=== PATIENT | female | born 1950 | race Caucasian/White ===

== ENCOUNTER 2017-09-24 10:56 | Inpatient (IN) | payer OTHER, MEDICARE ==
[2017-08-29 16:05] VITALS: BMI 31.0
[2017-08-29 16:22] LABS: INR 0.9 (0.9-1.1); PTT PATIENT 24.7 SECONDS (21.0-31.0)
--- NOTE | 2017-08-29 16:46 | PAT Medication Instructions ---
Service Date Aug 29, 2017. Current Home Medication List Albuterol Hfa (Ventolin Hfa), 1 PUFFS INH UD PRN for PRN Amlodipine (Norvasc), QAM Aspirin (Aspirin Ec), 81 MG PO HS Azelastine HCl (Azelastine HCl), Unknown Dose NA UD PRN for PRN Cetirizine (Zyrtec), 1 TAB PO QAM Cholecalciferol (Vitamin D3), 1 CAP PO QAM Diclofenac Sodium (Topical) (Voltaren 1% Top Gel), 1 APPLN TOP UD PRN for KNEE PAIN Fluticasone Propionate (Nasal) (Allergy Nasal [place] 24 Ho), 1 DOSE QUINTIN UD PRN for PRN Lansoprazole (Prevacid), Unknown Dose PO UD PRN for PRN Lorazepam (Ativan), 1 MG PO UD PRN for ANXIETY Magnesium Oxide (Magnesium), 250 MG PO HS Melatonin (Melatonin), 7.5 MG PO HS Meloxicam (Mobic), 7.5 MG PO QAM Mirabegron (Myrbetriq Er), 25 MG PO QAM Montelukast Sodium (Montelukast Sodium), 1 TAB PO QAM Multivitamin (Multivitamin), Unknown Dose QAM Oxycodone/Acetaminophen 5MG/325MG (Percocet 5MG/325MG), 1-2 TABLETS PO Q4-6HR PRN Polyethylene Glycol 3350 (Miralax), 17 GM PO QAM Turmeric (Curcuma Longa) (Turmeric), 1 TAB PO QAM Umeclidinium-Vilanterol (Anoro Ellipta 62.5-25 Mcg/INH), 1 PUFF INH QAM [Citracal ], Unknown Dose PO QAM [Flexor Patch ], Unknown Dose TOP UD PRN for JOINT PAIN Medication Instructions For Your Scheduled Surgery -Follow your surgeons instructions for: Meloxicam (Mobic), 7.5 MG PO QAM (stop for 10 days before surgery) - Hold the following medications 2 weeks prior to surgery: Turmeric (Curcuma Longa) (Turmeric), 1 TAB PO QAM - Hold the following medications 24 hours prior to surgery: [Flexor Patch ], Unknown Dose TOP UD PRN for JOINT PAIN Diclofenac Sodium (Topical) (Voltaren 1% Top Gel), 1 APPLN TOP UD PRN for KNEE PAIN - Hold the following medications the morning of surgery: Cetirizine (Zyrtec), 1 TAB PO QAM Cholecalciferol (Vitamin D3), 1 CAP PO QAM Mirabegron (Myrbetriq Er), 25 MG PO QAM Montelukast Sodium (Montelukast Sodium), 1 TAB PO QAM Multivitamin (Multivitamin), Unknown Dose QAM Polyethylene Glycol 3350 (Miralax), 17 GM PO QAM [Citracal ], Unknown Dose PO QAM - Take the following medications the morning of surgery with a sip of water: Albuterol Hfa (Ventolin Hfa), 1 PUFFS INH UD PRN for PRN (if needed, and bring it with you to the hospital) Amlodipine (Norvasc), QAM Azelastine HCl (Azelastine HCl), Unknown Dose NA UD PRN for PRN (if needed) Fluticasone Propionate (Nasal) (Allergy Nasal [place] 24 Ho), 1 DOSE QUINTIN UD PRN for PRN (if needed) Lansoprazole (Prevacid), Unknown Dose PO UD PRN for PRN (if needed) Lorazepam (Ativan), 1 MG PO UD PRN for ANXIETY (if needed) Umeclidinium-Vilanterol (Anoro Ellipta 62.5-25 Mcg/INH), 1 PUFF INH QAM - Take the following medications as scheduled the night before surgery: Albuterol Hfa (Ventolin Hfa), 1 PUFFS INH UD PRN for PRN (if needed) Amlodipine (Norvasc), QAM Aspirin (Aspirin Ec), 81 MG PO HS Azelastine HCl (Azelastine HCl), Unknown Dose NA UD PRN for PRN (if needed) Fluticasone Propionate (Nasal) (Allergy Nasal [place] 24 Ho), 1 DOSE QUINTIN UD PRN for PRN (if needed) Lansoprazole (Prevacid), Unknown Dose PO UD PRN for PRN (if needed) Lorazepam (Ativan), 1 MG PO UD PRN for ANXIETY (if needed) Magnesium Oxide (Magnesium), 250 MG PO HS Melatonin (Melatonin), 7.5 MG PO HS If you have any questions please call us at [phone] or [phone] or [phone]
--- NOTE | 2017-08-29 17:38 | DIAGNOSTIC IMAGING REPORT ---
CHEST 2 VIEWS ROUTINE HISTORY: 67 years-old Female pat preoperative exam. No acute chest complaints. COMPARISON: Chest radiograph 07/24/2006 TECHNIQUE: PA and lateral views of the chest FINDINGS: Cardiomediastinal and hilar silhouettes are within normal limits. The patient is slightly rotated to the left. Chronic blunting of the costophrenic angles without pneumothorax, large pleural effusion or overt pulmonary edema. Indeterminate linear 1.6 cm metallic density structure projects over the lateral lingula. Moderate hiatal hernia. Increased kyphotic curvature of the thoracic spine with multilevel endplate spurring. Degenerative changes also seen within the shoulders. IVC filter noted. IMPRESSION: 1. No acute process of the chest. 2. Moderate hiatal hernia. 3. Indeterminate linear 1.6 cm metallic density structure projects over the lateral lingula. The above report was generated using voice recognition software. It may contain grammatical, syntax or spelling errors. Electronically signed by: Severiano Hearn M.D. 08/29/2017 5:37 PM Dictated Date/Time: 08/29/2017 5:34 PM
--- NOTE | 2017-09-19 08:28 | HISTORY & PHYSICAL EXAMINATION ---
DATE OF ADMISSION: 09/24/2017 CHIEF COMPLAINT: Left knee pain. HISTORY OF PRESENT ILLNESS: A 67-year-old female, now 11 years out from a right knee replacement who presents for surgical treatment of her left knee. She has had about a 10-year history of a gradually increasing left knee pain and discomfort that has gotten gradually worse over time. The injections had become less successful over time. She has periods where she has pretty excruciating pain and has difficulty even walking and getting around. Symptoms do tend to wax and wane some. It is global pain throughout the entire knee. The more she walks, the more it seems to hurt. She would like to have her left knee fixed. The patient does have a history of DVT in the past and has an IVC filter in place. No known clotting disorder. Not on any anticoagulation. PAST MEDICAL HISTORY: 1. Mitral valve prolapse. 2. Hypertension. 3. COPD. 4. History of DVT in 2003 after a hernia surgery with an IVC filter in place. 5. Hiatal hernia. 6. Mild obesity with a BMI of 32. 7. Kidney stones. PAST SURGICAL HISTORY: Previous surgeries include 1. Tubal ligation. 2. Multiple lumps removed from her breasts. 3. Hiatal hernia complicated by DVT. 4. Right knee replacement done on August 09, 2006. 5. Rectocele repair in 2002. 6. Hysterectomy in 1990. ALLERGIES: ADHESIVE TAPES. MEDICATIONS: Current medications include 1. Montelukast 10 mg a day. 2. Amlodipine 10 mg a day. 3. Myrbetriq 25 mg. 4. Anoro 62.5 mcg a day. 5. Meloxicam 7.5 mg a day. 6. Magnesium. 7. Baby aspirin. 8. Vitamin D. 9. Turmeric. 10. Zyrtec. 11. MiraLax. 12. Once a day Citrucel. 13. Diclofenac p.r.n. 14. Prevacid. 15. Melatonin. 16. Lorazepam. 17. Zolpidem. 18. Fluticasone. 19. Azelastine. 20. Flector patch. 21. ProAir. SOCIAL HISTORY: A 67-year-old female. She is from [place]. She does not smoke. No alcohol use. FAMILY HISTORY: Noncontributory. REVIEW OF SYSTEMS: Negative for diabetes, neurologic problem, vascular problems, or bleeding disorders. He does have this history of a DVT and has an IVC filter in place but not on any anticoagulation. No known clotting disorders. PHYSICAL EXAMINATION: GENERAL: Examination shows a pleasant middle-aged female, looks to be in pretty good health. HEENT: Benign. NECK: Supple, no lymphadenopathy. LUNGS: Clear to auscultation. CARDIOVASCULAR: Heart has regular rate and rhythm. GASTROINTESTINAL: Abdomen is soft, nontender, nondistended. EXTREMITIES: Grossly neurovascularly intact except as follows: Examination of the left leg reveals the patient walks with slight bit of a limp. She has varus alignment to her knee. She has bony hypertrophy medially. Small knee effusion. Range of motion is 5 to 110 degrees flexion. No instability. No pain with hip motion. IMAGING: X-rays of the left knee reviewed. She has advanced left knee DJD. She has complete loss of her medial joint space, a little bit of tibial femoral subluxation. She has subchondral sclerosis. ASSESSMENT: A 67-year-old white female, 11 years out from right knee replacement with advanced left knee degenerative joint disease. She has failed conservative treatment and would like to have her left knee replaced. She does have a history of DVT in the past and has an IVC filter in place. PLAN: We will take her to the operating room and do a left total knee replacement. The risks and benefits of the procedure explained to the patient which include but are not limited to DVT, PE, , infection, neurological injury, vascular injury, bleeding problem, pain in the range of motion, failure to relieve her symptoms, incomplete relief of symptoms, need for further surgery in the future, fracture, leg length inequality, nerve palsy, etc. The patient understands and desires to proceed. Informed consent was obtained. The patient does have a history of IVC filter in place. Will likely use Xarelto for 30 days postop for DVT prophylaxis. She has stopped her NSAIDs 10 days preop. She is planning to be discharged to home using the [facility] home health program.
[~2017-09-24] VITALS: Ht 162.6 cm; Wt 83.5 kg
[~2017-09-24 10:56] MED LIST: ACETAMINOPHEN 500 MG TAB PO SCH; AMLO-114; ASPI81TA28 PO; AZEL0.056; BUPIVACAINE LIPOSOME 266 MG, BUPIVACAINE/EPINEPHRINE INJ 50 ML, SODIUM CHLORIDE 0.9% PF... INFIL SCH; CEFAZOLIN 2000MG IV PUSH 15 ML IV SCH; CETI10TA84 PO; CHOL2000 PO; CITRACAL PO; DICL1GEL12 TOP; FAMOTIDINE 20 MG TAB PO SCH; FLEXOR PATCH TOP; FLUT50SP45 NAE; GABAPENTIN 300 MG CAP PO SCH; LACTATED RINGER'S 1000ML 1,000 ML IV SCH; LACTATED RINGER'S 1000ML IV SCH; LANS15CA6 PO; LORA-741 PO; MAGN1CAP4 PO; MELA1TAB48 PO; MELO7.5T5 PO; METOCLOPRAMIDE HCL 10 MG TAB PO SCH; MIRA100T PO; MISSING PHYSICIAN SIGNATURE ON ORDER SCH; MONT1TAB5 PO; MULT-506; OXYC-57 PO; POLY335019 PO; SCOPOLAMINE 1.5 MG TDSY TD SCH; TRANEXAMIC ACID INJ 1,000 MG x 1 Bag Intra-Op IV SCH; TURM500T PO; UMEC1AER INH; VNTHFA/IN INH
[2017-09-24 11:20] VITALS: BP 158/92; PULSE 81; TEMP 36.8; O2SAT 98; Ht 162.6 cm; Wt 83.5 kg
--- NOTE | 2017-09-24 11:22 | History & Physical Bridge Note ---
H&P Re-Evaluation Bridge Note: I have examined the patient, reviewed the History & Physical and in the interval since the performance of the History & Physical I have noted the following changes of clinical significance: No changes noted
[2017-09-24] MEDS ORDERED: ACETAMINOPHEN 500 MG TAB ONE (11:24)
[2017-09-24] MEDS ORDERED: FAMOTIDINE 20 MG TAB ONE (11:24)
[2017-09-24] MEDS ORDERED: LIDOCAINE HCL 2% 2 ML VIAL (20MG/ML) ONE (11:50)
[2017-09-24] MEDS ORDERED: FENTANYL CITRATE INJ 50 MCG/1 ML 2 ML VIAL ONE (11:51)
[2017-09-24] MEDS ORDERED: PROPOFOL IV EMULSION 10 MG/ML 20 ML VIAL ONE ×3 (11:51→14:20)
[2017-09-24] MEDS ORDERED: MIDAZOLAM HCL 1 MG/ML 2ML VIAL ONE ×2 (11:51→14:11)
[2017-09-24] MEDS ORDERED: BUPIVACAINE 0.5 % 5 MG/1 ML PF 10ML VIAL ONE (11:55)
[2017-09-24] MEDS ORDERED: EpINEphrine INJ 1MG/ML AMP 1 MG/ML AMP ONE ×2 (11:56→13:25)
[2017-09-24] MEDS ORDERED: DEXAMETHASONE SOD INJ 4 MG/ML VIAL ONE ×2 (11:56→14:13)
[2017-09-24] MEDS ORDERED: SODIUM CHLORIDE 0.9% INJ 10 ML VIAL ONE (11:56)
[2017-09-24] MEDS ORDERED: EpHEDrine SULFATE INJ 50 MG/ML AMP IV PRN (12:00)
[2017-09-24] MEDS ORDERED: FENTANYL CITRATE INJ 50 MCG/1 ML 2 ML VIAL IV PRN (12:00)
[2017-09-24] MEDS ORDERED: ONDANSETRON INJ 2 MG/ML 2 ML VIAL IV PRN ×2 (12:00→15:45)
[2017-09-24] MEDS ORDERED: ATROPINE SULFATE 0.1 MG/ML 5ML SYR IV PRN (12:00)
[2017-09-24] MEDS ORDERED: SODIUM CHLORIDE 0.9% PF 50 ML VIAL ONE (13:23)
[2017-09-24] MEDS ORDERED: BUPIVACAINE LIPOSOME 1/3% 266 MG/20 ML VIAL ONE (13:23)
[2017-09-24] MEDS ORDERED: BACITRACIN 50000 UNIT VIAL ONE (13:23)
[2017-09-24] MEDS ORDERED: BUPIVACAINE 0.25% 30 ML VIAL ONE (13:25)
[2017-09-24] MEDS ORDERED: ONDANSETRON INJ 2 MG/ML 2 ML VIAL ONE (14:13)
--- NOTE | 2017-09-24 15:38 | [facility] Post Operative Brief Note ---
Immediate Operative Summary Operative Date September 24, 2017. Pre-Operative Diagnosis Left Knee Degenerative Joint Disease Post-Operative Diagnosis Left Knee Degenerative Joint Disease Procedure(s) Performed Left Total Knee Arthroplasty Surgeon Dr. Navarro Brass Bobbin Winder Surgeon(s) Mo Salazar PA-C Estimated Blood Loss 50 ml Findings Consistent with Post-Op Diagnosis Fluids (cc crystalloids) 1300 cc Specimens A. Left Knee Bone and Tissue Drains None Anesthesia Type MAC Spinal Regional Complication(s) none Disposition Accompanied Pt To Recover: yes Disposition: Recovery Room / PACU Overlapping Procedure I was present for: the critical portions of procedure. I was immediately available: during the entire case
[2017-09-24] MEDS ORDERED: SILVER SULFADIAZINE 1% CR 50 GM JAR EXT PRN (15:45)
[2017-09-24] MEDS ORDERED: MAGNESIUM HYDROXIDE SUSP 30 ML UDC PO PRN (15:45)
[2017-09-24] MEDS ORDERED: HYDROmorphone INJ 0.5 MG/0.5 ML SYR IV PRN (15:45)
[2017-09-24] MEDS ORDERED: ALUMINUM/MAGNESIUM/SIMETH (MAALOX MAX) 30 ML UDC PO PRN (15:45)
[2017-09-24] MEDS ORDERED: BISACODYL 10 MG SUPP PR PRN (15:45)
[2017-09-24] MEDS ORDERED: FLUTICASONE PROPIONATE NA SPR 16 GM BTL NAE PRN (15:45)
[2017-09-24] MEDS ORDERED: ALBUTEROL HFA 8 GM INHALER INH PRN (15:45)
[2017-09-24] MEDS ORDERED: METOCLOPRAMIDE HCL INJ 5 MG/ML 2 ML VIAL IV PRN (15:45)
--- NOTE | 2017-09-24 16:01 | Anesthesiology Progress Note ---
Anesthesia Post Op Note Date & Time September 24, 2017 at 16:01 Vital Signs Pain Intensity: 0 Vital Signs Past 12 Hours Date Time Temp Pulse Resp B/P (MAP) Pulse Ox O2 Delivery O2 Flow Rate FiO2 09/24/17 15:50 67 16 143/79 94 Oxymask 3 09/24/17 15:41 36.0 75 20 132/82 94 Oxymask 5 09/24/17 11:20 36.8 81 20 158/92 98 Room Air Notes Mental Status: alert / awake / arousable, participated in evaluation Pt Amnestic to Procedure: Yes Nausea / Vomiting: adequately controlled Pain: adequately controlled Airway Patency, RR, SpO2: stable & adequate BP & HR: stable & adequate Hydration State: stable & adequate Neuraxial Anesthesia: was administered, sensory block is resolving Anesthetic Complications: no major complications apparent
--- NOTE | 2017-09-24 16:06 | DIAGNOSTIC IMAGING REPORT ---
L KNEE 1 OR 2 VIEWS ROUTINE HISTORY: 67 years-old Female AP/LATERAL IN PACU LEFT KNEE left knee total joint arthroplasty. Degenerative joint disease. COMPARISON: Left knee radiographs 08/29/2017 TECHNIQUE: 2 views of the left knee FINDINGS: Postoperative changes from recent left knee total joint arthroplasty with patellar resurfacing. Expected postsurgical soft tissue swelling and deep tissue air with anterior midline skin efren in place. There is satisfactory alignment without periprosthetic fracture or retained foreign body identified. IMPRESSION: Left knee total joint arthroplasty and patellar resurfacing without complication identified. The above report was generated using voice recognition software. It may contain grammatical, syntax or spelling errors. Electronically signed by: Severiano Hearn M.D. 09/24/2017 4:04 PM Dictated Date/Time: 09/24/2017 4:03 PM
[2017-09-24] MEDS: CHECK SCOPOLAMINE PATCH PLACEMENT SCH ×2 (16:32→23:20)
[2017-09-24 16:35] VITALS: BP 136/80; PULSE 70; TEMP 36.5; O2SAT 92
[2017-09-24 16:59] VITALS: BP 132/86; PULSE 69; TEMP 36.5; O2SAT 94
[2017-09-24 17:15] VITALS: BP 133/80; PULSE 68; TEMP 36.5; O2SAT 96
[2017-09-24] MEDS ORDERED: NURSING VERBAL MED ORDER ONE (17:15)
[2017-09-24] MEDS: KETOROLAC TROMETHAMINE 15 MG/ML VIAL IV. SCH ×2 (17:34→23:22)
[2017-09-24] MEDS: FERROUS GLUCONATE 324 MG TAB PO SCH (17:34)
[2017-09-24] MEDS: D5W AND 1/2NSS + 20MEQ KCL 1,000 ML IV SCH (17:34)
--- NOTE | 2017-09-24 18:12 | OPERATIVE REPORT ---
DATE OF OPERATION: 09/24/2017 SURGEON: Vega Navarro MD. PARK GUARD: Cristo Salazar PA-C PREOPERATIVE DIAGNOSIS: Left knee degenerative joint disease. POSTOPERATIVE DIAGNOSIS: Same. PROCEDURE PERFORMED: Left cemented posterior stabilized total knee arthroplasty. COMPLICATIONS: None. ESTIMATED BLOOD LOSS: 50 mL. FLUID REPLACEMENT: 1300 mL crystalloid fluid replacement. TOURNIQUET TIME: 59 minutes at 300 mmHg. ANESTHESIA: Spinal with adductor canal block. DRAINS: None. SPECIMENS: Left knee sent for pathology. OPERATIVE INDICATIONS: The patient is a 67-year-old female, now 11 years out from a right knee replacement. She has done remarkably well with this. Over the past 10 years, she has gradually developed increased pain and discomfort in the left knee. She failed conservative care. X-rays showed advanced DJD, and she elected to proceed with surgical treatment. OPERATIVE FINDINGS: Operative findings revealed advanced left knee DJD. She had extensive grade 4 changes of the medial compartment and patellofemoral compartment and some spotty grade 4 changes in the lateral compartment. She had diffuse osteopenia. She had osteophytes in all 3 compartments. Moderate size joint effusion. OPERATIVE IMPLANTS: 1. Biomet Vanguard size 62.5 left posterior stabilized femoral component. 2. Biomet size 71 tibial tray. 3. A 10 mm posterior stabilized polyethylene insert. 4. A 31 x 8 all poly patella. OPERATIVE PROCEDURE: The patient was taken to the operating room, identified and placed on the operating room table in supine position. All contact areas were appropriately padded. IV antibiotics provided by anesthesia team. A spinal anesthetic and adductor canal block had been provided in the holding area. Lewis catheter was placed in sterile fashion. A left thigh tourniquet was then placed, and the left lower extremity was then prepped and draped in the usual sterile fashion. Her left leg was only exsanguinated with Esmarch. Tourniquet was placed at 300 mmHg. An anterior approach to the left knee was then performed through a longitudinal incision centered over the patella. Sharp dissection was carried through subcutaneous tissues down to the level of the extensor mechanism. A medial parapatellar arthrotomy incision was made. Some subperiosteal dissection was carried out medially. The fat pad resected from beneath the patellar tendon. A lateral patellofemoral ligament was released. The patella was everted, and knee was flexed. The osteophytes were taken off distal femur. The ACL and PCL were then released from the distal femur and the tibia subluxated anteriorly. The external tibial alignment jig was then placed in the anterior face of the tibia and adjusted 14 mm medially. Proximal tibial cut was made to remove about 1 mm bone from the most deficient aspect of the medial tibial plateau. Some osteophytes were taken off medially and posterior medially. The tibia was sized to a size 71. Attention was then drawn to the femur. The distal femur was entered with a sharp drill bit. Intramedullary canal was suctioned. A left 5 degree valgus cutting guide was placed. Distal femoral cutting block was pinned in place. Distal femoral cut was made to take an additional 3 mm of bone off distal femur. Femur was then sized to a size 62.5. We did downsize this slightly. The AP cutting block was pinned parallel to the epicondylar axis, which was 5 degrees of external rotation. The anterior cut, anterior chamfer, posterior cut, posterior chamfer cuts were made. Box cutting guide was placed and adjusted slightly lateral, and the box cut was made. The knee was flexed. The remnants of the medial and lateral menisci were excised. The osteophytes were taken off the posterior aspect of the femur. A trial femoral component was placed. Tibial tray was pinned in maximum external rotation. Drill and stem punch were used to create defect from proximal tibia for the tibial tray. The knee was then trialed, and the 10 mm insert fit most appropriately. Attention was then drawn to patella. The patella was cleaned of all soft tissues. Patellar thickness measured 18 mm in thickness and was cut down to 12. It was sized to size 31 patella. Lug holes were drilled for 31 patella. Lateral osteophyte was removed. Patellar button was placed. Knee was taken through range of motion. Patella tracked nicely with no thumbs test. Attention was then drawn toward placement of permanent components. All trial components were removed. A bone plug was placed in the distal femur to limit blood loss. A double batch of [place]acos G cement was mixed. A left size 62.5 posterior stabilized femoral component, size 71 tibial tray, a 10 mm posterior stabilized polyethylene insert, and a 31 x 8 all poly patella then cemented in place. Knee was brought out into full extension until cement hardened. A final cement check was then performed. The pericapsular tissues were injected with a total of 100 mL of a combination of 20 mL of Exparel, 30 mL of normal saline, 50 mL of 0.25% Marcaine with epinephrine. The patient did receive 1 g of tranexamic acid. The tourniquet was then let down for a final tourniquet time of 59 minutes. Hemostasis was assured with use of electrocautery. The wound was once again irrigated. The extensor mechanism was then closed with a combination of #1 PDS suture and #1 Vicryl suture in a [id number] fashion. Extensor mechanism was checked and found to be intact. Subcutaneous tissues were then closed with 2-0 Dexon suture in a buried interrupted fashion. Skin was closed with skin efren. Leg was then cleaned, dried, and a sterile dressing of Xeroform, 4x4, sterile cast padding, and Shant bandage were applied. The patient was then transferred to the recovery room in stable condition. The patient tolerated the procedure well with no complications. All needle and sponge counts were correct at the end of the operation. I attest to the content of the Intraoperative Record and any orders documented therein. Any exception s are noted below.
[2017-09-24 19:16] VITALS: BP 148/84; PULSE 77; TEMP 36.7; O2SAT 93
[2017-09-24] MEDS: DOCUSATE SODIUM 100 MG CAP PO SCH (20:43)
[2017-09-24] MEDS: MAGNESIUM OXIDE 400 MG TAB PO SCH (20:43)
[2017-09-24] MEDS: SENNA 8.6 MG TAB PO SCH (20:43)
[2017-09-24] MEDS: ASPIRIN 81 MG ECTAB PO SCH (20:43)
[2017-09-24] MEDS: LORAZEPAM 1 MG TAB PO PRN (20:48)
[2017-09-24] MEDS ORDERED: MELATONIN 7.5 MG PO SCH (21:00)
[2017-09-24] MEDS: CEFAZOLIN IV 2,000 MG in SYRINGE 0 ML IV SCH (21:29)
[2017-09-24] MEDS: ACETAMINOPHEN 500 MG TAB PO SCH (21:29)
[2017-09-24] MEDS ORDERED: TRANEXAMIC ACID INJ 1,000 MG in SODIUM CHLORIDE 0.9% 100ML 100 ML IV SCH (22:00)
[2017-09-24] MEDS: ZOLPIDEM TARTRATE 5 MG TAB PO PRN (22:17)
[2017-09-24 23:00] VITALS: BP 103/69; PULSE 69; TEMP 36.5; O2SAT 90
[2017-09-25] VITALS (7 sets, daily range): BP systolic 106–136; BP diastolic 67–85; PULSE 62–109; TEMP 36.5–37.2; O2SAT 93–98
[2017-09-25] MEDS: D5W AND 1/2NSS + 20MEQ KCL 1,000 ML IV SCH ×2 (00:30→10:44)
[2017-09-25] MEDS: KETOROLAC TROMETHAMINE 15 MG/ML VIAL IV. SCH ×2 (05:04→10:28)
[2017-09-25] MEDS: CEFAZOLIN IV 2,000 MG in SYRINGE 0 ML IV SCH (05:50)
[2017-09-25] MEDS: ACETAMINOPHEN 500 MG TAB PO SCH ×3 (05:51→21:32)
[2017-09-25 06:46] LABS: MEAN CELL VOLUME 83.7 fL (80-100); MEAN CORPUSCULAR HEMOGLOBIN 27.9 pg (25-34); MEAN CORPUSCULAR HGB CONC 33.3 g/dl (32-36); MEAN PLATELET VOLUME 12.4 fL (7.4-10.4); PLATELET COUNT 159 K/uL (130-400); RED CELL DISTRIBUTION WIDTH SD 46.4 fL (36.4-46.3); WHITE BLOOD COUNT 10.15 K/uL (4.8-10.8)
[2017-09-25 07:13] LABS: CREATININE 0.96 mg/dl (0.60-1.20); POTASSIUM 3.7 mmol/L (3.5-5.1)
--- NOTE | 2017-09-25 07:50 | Anesthesiology Progress Note ---
Anesthesia Post Op Note Date & Time September 25, 2017 at 07:50 Vital Signs Pain Intensity: 0.0 Vital Signs Past 12 Hours Date Time Temp Pulse Resp B/P (MAP) Pulse Ox O2 Delivery O2 Flow Rate FiO2 09/25/17 03:54 36.5 62 17 114/75 (88) 95 Room Air 09/24/17 23:30 Room Air 09/24/17 23:00 36.5 69 16 103/69 (80) 90 Room Air Notes Mental Status: alert / awake / arousable, participated in evaluation Pt Amnestic to Procedure: Yes Nausea / Vomiting: adequately controlled Pain: adequately controlled Airway Patency, RR, SpO2: stable & adequate BP & HR: stable & adequate Hydration State: stable & adequate Neuraxial Anesthesia: sensory block resolved Anesthetic Complications: no major complications apparent
[2017-09-25] MEDS: CHECK SCOPOLAMINE PATCH PLACEMENT SCH ×4 (07:52→23:16)
[2017-09-25] MEDS: DOCUSATE SODIUM 100 MG CAP PO SCH ×2 (08:44→21:30)
[2017-09-25] MEDS: FERROUS GLUCONATE 324 MG TAB PO SCH ×3 (08:44→17:10)
[2017-09-25] MEDS: MIRABEGRON ER 25 MG TAB PO SCH (08:45)
[2017-09-25] MEDS: CHOLECALCIFEROL 1000 INTER.UNIT TAB PO SCH (08:45)
[2017-09-25] MEDS: MONTELUKAST SOD 10 MG TAB PO SCH (08:46)
[2017-09-25] MEDS: AMLODIPINE BESYLATE 5 MG TAB PO SCH (08:46)
[2017-09-25] MEDS: POLYETHYLENE (MIRALAX) 17 GM PACK PO SCH (08:46)
[2017-09-25] MEDS: CETIRIZINE HCL 10 MG TAB PO SCH (08:46)
[2017-09-25] MEDS: MULTIVITAMIN TAB PO SCH (08:47)
[2017-09-25] MEDS ORDERED: NON-FORMULARY MEDICATION (Turmeric (Curcuma Longa) (Turmeric) 1 TAB) PO SCH (09:00)
[2017-09-25] MEDS: PANTOprazole SOD 40 MG TAB PO SCH (09:25)
--- NOTE | 2017-09-25 13:56 | PROGRESS NOTE ---
DATE: 09/25/2017 SUBJECTIVE: A 67-year-old white female postop day 1 from a left knee replacement. She is doing pretty well. Really not much pain. No chest pain, no shortness of breath. Not feeling dizzy or lightheaded. OBJECTIVE: VITAL SIGNS: Temperature 36.8. Stable. GENERAL: Physical exam shows a pleasant middle-aged female. She is sitting up in her bedside chair and looks pretty comfortable. EXTREMITIES: Examination of the left leg reveals the dressing to be clean, dry, and intact. She can dorsiflex and plantarflex her foot appropriately. She is neurologically intact. LABORATORY DATA: Hemoglobin is 12.0, hematocrit 36.0. Electrolytes are stable. ASSESSMENT: A 67-year-old white female postop day 1 from the left knee replacement, doing well. Pain is controlled. She is neurologically intact. She does have a history of a deep venous thrombosis in the past and has an inferior vena cava filter in place. PLAN: 1. DVT prophylaxis including thigh-high TEDs and SCDs, and we are going to put her on Xarelto for 1 month postop. 2. PT/OT. Weight bear as tolerated. Left total knee protocol. 3. Pain control, doing pretty well on current pain regimen. 4. Disposition: Planned to discharge to home with some home health once adequately recovered.
[2017-09-25] MEDS ORDERED: RIVAROXABAN 10 MG TAB PO SCH (16:00)
[2017-09-25] MEDS: TRAMADOL HCL 50 MG TAB PO PRN (19:58)
[2017-09-25] MEDS ORDERED: ULT50X PO (20:36)
[2017-09-25] MEDS ORDERED: XRL10 PO (20:36)
[2017-09-25] MEDS ORDERED: ACET-24 PO (20:36)
--- NOTE | 2017-09-25 20:39 | Discharge Instructions ---
Discharge Instructions Date of Service September 25, 2017. 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 Instructions / Follow-Up Instructions / Follow-Up ACTIVITY RECOMMENDATIONS: Physical Therapy: * You will go to physical therapy three times each week for four to six weeks after your surgery in order to regain your knee range of motion and to retrain your knee to work properly. * It is just as important to make sure you are getting your knee perfectly straight as it is to regain your knee bend. * Taking a pain pill an hour before therapy can help you have a more productive and comfortable therapy session. Home Exercise: * You were shown a series of exercises (heel props, heel slides, etc.) in the hospital. Do these exercises three to four times each day including the exercises you were shown in physical therapy. Walking: * Get up and walk several times each day. For the first four weeks, try not to stand or walk for more than one hour at a time. If you do stand or walk for more than one hour, you will not hurt anything, but your knee and leg will likely swell. * As you feel comfortable, you may change from the walker or crutches to a cane and then to independent walking. MEDICATIONS: New Medicine: * You will likely be taking one or more of these medications: 1. Tramadol - A quick and shorter-acting pain medication. Take one to two tablets every four to six hours to lessen your pain. 2. Xarelto - Thins your blood to lessen the chance of forming a blood clot. * The most common side effects of pain medicine and iron are nausea and constipation. If nausea or constipation is too much of a problem or if you have any questions about your new medicines or doses, call [facility] at . We will try to help you manage these issues. VERY IMPORTANT TO READ AND REVIEW" Pain: * The immediate post-operative period after knee replacement surgery is often quite painful. * You are given a prescription for pain medicine. You should take it, as directed, when you need it, especially before physical therapy and before going to bed. Pain that interferes with sleep is very common and can last several months. * You will likely need pain medicine for the first four to six weeks. It will not stop all of the pain. The pain will lessen and as you feel better, you may change to milder pain medicine such as Tylenol. * The most common side effects of pain medicine are nausea and constipation, so don't take more than you need. SPECIAL CARE INSTRUCTIONS: TEDs/Elastic Stockings: * The white elastic stockings help limit swelling and prevent blood clots from forming in your legs. The more you wear them, the more they work. * Wear them for six weeks after knee replacement surgery and four weeks after partial knee replacement. Prevention of Infection: * Take antibiotics one hour before any dental cleaning, dental work, urological procedure, gastrointestinal procedure or any invasive surgery in order to prevent your new joint from getting infected. * You may get the antibiotics from the doctor performing the procedure or you may call our office at before and we will call in a prescription to the pharmacy of your choice. Things to Watch For: * Drainage from the incision site that occurs more than one week after your surgery. * Severely increased knee/leg pain or swelling. * Increased redness at the incision site. * Fever above 102 degrees Fahrenheit. * Unusual chest pain or shortness of breath. * Unusual pain or burning with urination. Call [facility] at with any of the above problems or if you have any questions about your medicines or recovery. FOLLOW UP VISIT: Make an appointment to see your doctor for approximately two weeks after surgery for a progress check and staple removal by calling the office at . Current Hospital Diet Patient's current hospital diet: Regular Diet Discharge Diet Recommended Diet: Regular Diet Procedures Procedures Performed: Left Total Knee Arthroplasty Pending Studies Studies pending at discharge: no Medical Emergencies . Who to Call and When: Medical Emergencies: If at any time you feel your situation is an emergency, please call [phone] immediately. . Non-Emergent Contact Non-Emergency issues call your: Surgeon . "Provider Documentation" section prepared by Vega Navarro. .
[2017-09-25] MEDS: LORAZEPAM 1 MG TAB PO PRN (21:30)
[2017-09-25] MEDS: MAGNESIUM OXIDE 400 MG TAB PO SCH (21:32)
[2017-09-25] MEDS: ASPIRIN 81 MG ECTAB PO SCH (21:32)
[2017-09-25] MEDS: SENNA 8.6 MG TAB PO SCH (21:33)
[2017-09-25] MEDS: ZOLPIDEM TARTRATE 5 MG TAB PO PRN (23:40)
[2017-09-26] MEDS: ACETAMINOPHEN 500 MG TAB PO SCH (05:21)
[2017-09-26] MEDS: TRAMADOL HCL 50 MG TAB PO PRN (07:42)
[2017-09-26] MEDS: CHECK SCOPOLAMINE PATCH PLACEMENT SCH (07:43)
[2017-09-26 07:54] VITALS: BP 164/72; PULSE 78; TEMP 37; O2SAT 95
--- NOTE | 2017-09-26 07:58 | PROGRESS NOTE ---
DATE: 09/26/2017 SUBJECTIVE: A 67-year-old white female postop day #2 from a left knee replacement. She is doing well. Pain is pretty well controlled. No chest pain or shortness of breath. Not feeling dizzy or lightheaded. OBJECTIVE: VITAL SIGNS: Temperature 37.2. Vital signs stable. GENERAL: Shows a pleasant elderly female lying in bed and looks pretty comfortable. I had to wake her this morning. EXTREMITIES: Examination of the left leg reveals the leg to be well aligned. She can dorsiflex and plantarflex her foot appropriately. Calf is soft and supple. She is neurologically intact. ASSESSMENT: A 67-year-old white female postop day 2 from a left knee replacement, doing pretty well. She has an IVC filter in place. Her pain is controlled. PLAN: 1. DVT prophylaxis including thigh-high TEDs, SCDs, and Xarelto for 1 month. 2. PT/OT. Weightbear as tolerated. Left total knee protocol. 3. Pain control, doing well with current pain regimen. 4. Disposition: Plan to discharge to home with some home health later today.
[2017-09-26] MEDS: FERROUS GLUCONATE 324 MG TAB PO SCH (08:30)
[2017-09-26 08:46] VITALS: O2SAT 95
[2017-09-26] MEDS: PANTOprazole SOD 40 MG TAB PO SCH (09:00)
[2017-09-26] MEDS: MIRABEGRON ER 25 MG TAB PO SCH (09:02)
[2017-09-26] MEDS: MONTELUKAST SOD 10 MG TAB PO SCH (09:03)
[2017-09-26] MEDS: AMLODIPINE BESYLATE 5 MG TAB PO SCH (09:03)
[2017-09-26] MEDS: POLYETHYLENE (MIRALAX) 17 GM PACK PO SCH (09:04)
[2017-09-26] MEDS: CETIRIZINE HCL 10 MG TAB PO SCH (09:04)
[2017-09-26] MEDS: MULTIVITAMIN TAB PO SCH (09:04)
[2017-09-26] MEDS: CHOLECALCIFEROL 1000 INTER.UNIT TAB PO SCH (09:04)
[2017-09-26] MEDS: DOCUSATE SODIUM 100 MG CAP PO SCH (09:04)
[2017-09-26 10:52] VITALS: BP 164/72; PULSE 78; TEMP 37; O2SAT 95
== END 2017-09-26 11:28 | disposition home health service (06) | DRG 470 ==
LOC: C.ACU 10:56 → C.3E 15:45 → ENRESERV 15:54
PROVIDERS: ADMIT Orthopaedic Surgery Sports Medicine; ATTEND Orthopaedic Surgery Sports Medicine
PROC: 0SRD0J9 Replacement of Left Knee Joint with Synthetic Substitute, Cemented, Open Approach (ICD-10-PCS; principal; 2017-09-24 13:00)
DX: M17.12 Unilateral primary osteoarthritis, left knee (principal); M85.862 Other specified disorders of bone density and structure, left lower leg; M21.162 Varus deformity, not elsewhere classified, left knee; M25.462 Effusion, left knee; J44.9 Chronic obstructive pulmonary disease, unspecified; I10 Essential (primary) hypertension; I34.1 Nonrheumatic mitral (valve) prolapse; E66.9 Obesity, unspecified; Z68.32 Body mass index [BMI] 32.0-32.9, adult; Z86.711 Personal history of pulmonary embolism; Z86.718 Personal history of other venous thrombosis and embolism; Z87.891 Personal history of nicotine dependence; Z96.651 Presence of right artificial knee joint; Z79.82 Long term (current) use of aspirin; Z79.1 Long term (current) use of non-steroidal anti-inflammatories (NSAID); Z79.899 Other long term (current) drug therapy; Z95.828 Presence of other vascular implants and grafts